=== PATIENT | male | born 1965 | race Caucasian/White ===

== ENCOUNTER → 2017-01-31 | Outpatient (CLI) | payer OTHER | LOC: BHSO 15:49 | DX: F31.74 Bipolar disorder, in full remission, most recent episode manic (principal) ==

== ENCOUNTER → 2017-10-07 | Outpatient (CLI) | payer OTHER | LOC: BHSO 15:59 | DX: F31.73 Bipolar disorder, in partial remission, most recent episode manic (principal) ==

== ENCOUNTER → 2018-03-24 | Outpatient (CLI) | payer OTHER | LOC: BHSO 15:33 | DX: F31.81 Bipolar II disorder (principal) | CPT/HCPCS: G0463 ==

== ENCOUNTER → 2018-11-27 | Outpatient (CLI) | payer OTHER | LOC: BHSO 13:47 | DX: F31.81 Bipolar II disorder (principal) | CPT/HCPCS: G0463 ==

== ENCOUNTER → 2019-06-01 | Outpatient (CLI) | payer OTHER | LOC: BHSO 15:32 | DX: F31.81 Bipolar II disorder (principal) | CPT/HCPCS: G0463 ==

== ENCOUNTER → 2019-12-02 | Outpatient (CLI) | payer OTHER | LOC: BHSO 16:20 | DX: F31.81 Bipolar II disorder (principal) | CPT/HCPCS: G0463 ==

== ENCOUNTER → 2020-06-06 | Outpatient (CLI) | payer OTHER | LOC: BHSO 16:17 | DX: F31.81 Bipolar II disorder (principal) | CPT/HCPCS: G0463 ==